=== PATIENT | female | born 1985 | race African-American/Black ===

== ENCOUNTER 2018-11-12 16:04 | Inpatient (IN) | payer MEDICAID ==
[~2018-11-12] VITALS: Ht 175.3 cm; Wt 69.9 kg
[2018-11-12] MEDS ORDERED: SODIUM CHLORIDE 0.9% 1,000 ML IV ONE ×2 (17:03→21:00)
[2018-11-12 17:09] LABS: BASOPHILS % 0.7 % (0.0-2.0); EOSINOPHILS % 3.4 % (0.0-5.0); HEMATOCRIT. 38.8 % (36.0-48.0); HEMOGLOBIN. 13.1 g/dL (12.0-16.0); LYMPHOCYTES % 42.2 % (20.0-50.0); MEAN CORPUSCULAR VOLUME 94.7 fL (81.0-99.0); MONOCYTES % 14.6 % (2.0-8.0); NEUTROPHILS % 39.1 % (40.0-76.0); PLATELET 170 x1000/uL (130-400); RED CELL DISTRIBUTION WIDTH 12.8 % (11.6-14.6)
[2018-11-12 17:12] LABS: CHLORIDE 106 mEq/L (98-107); INR 1.1; PROTHROMBIN TIME 10.8 sec (9.1-11.1)
[2018-11-12] MEDS ORDERED: LORAZEPAM 2MG/ML CPJ IV ONE (17:15)
[2018-11-12 17:16] LABS: HCG SCREEN NEGATIVE
[2018-11-12] MEDS ORDERED: POTASSIUM CHLORIDE 20MEQ TABLET SR PO ONE (18:30)
[2018-11-12 20:11] LABS: CLARITY URINE CLOUDY (CLEAR); COLOR URINE YELLOW (YELLOW); KETONES URINE TRACE (NEGATIVE); LEUKOCYTE ESTERASE URINE TRACE (NEGATIVE); NITRITE URINE NEGATIVE (NEGATIVE); OCCULT BLOOD URINE NEGATIVE (NEGATIVE); PH URINE 5.5 (4.5-8.0); PROTEIN URINE NEGATIVE (NEGATIVE); SPECIFIC GRAVITY URINE 1.024 (1.005-1.030)
[2018-11-12 20:19] LABS: *AMPHETAMINES SCREEN URINE NEGATIVE (NEGATIVE); *BARBITURATES SCREEN URINE NEGATIVE (NEGATIVE); *BENZODIAZEPINES SCREEN URINE NEGATIVE (NEGATIVE); *COCAINE SCREEN URINE NEGATIVE (NEGATIVE)
[2018-11-12 20:20] LABS: CANNABINOID URINE SCREEN NEGATIVE (NEGATIVE); METHADONE URINE SCREEN NEGATIVE (NEGATIVE); OPIATES URINE SCREEN NEGATIVE (NEGATIVE); PHENCYCLIDINE URINE SCREEN NEGATIVE (NEGATIVE)
[2018-11-12] MEDS ORDERED: ZOLPIDEM TARTRATE 5MG TABLET PO PRN (21:30)
[2018-11-12] MEDS ORDERED: ONDANSETRON HCL 4MG/2ML INJ IV PRN (21:30)
[2018-11-13 00:30] VITALS: BP 114/65
[2018-11-13 04:00] VITALS: BP 136/64
[2018-11-13] MEDS: ACETAMINOPHEN 325MG TABLET PO PRN ×2 (06:36→08:37)
[2018-11-13 07:25] LABS: BASOPHILS % 0.4 % (0.0-2.0); HEMATOCRIT. 35.5 % (36.0-48.0); HEMOGLOBIN. 12.1 g/dL (12.0-16.0); LYMPHOCYTES % 30.4 % (20.0-50.0); MEAN CORPUSCULAR HEMOGLOBIN 32.1 pg (28.0-32.0); MEAN CORPUSCULAR VOLUME 94.6 fL (81.0-99.0); MEAN PLATELET VOLUME 9.8 fl (7.4-10.4); MONOCYTES % 13.1 % (2.0-8.0); NEUTROPHILS % 54.1 % (40.0-76.0); PLATELET 163 x1000/uL (130-400); RED BLOOD CELL COUNT 3.76 mill/uL (4.2-5.4); RED CELL DISTRIBUTION WIDTH 12.5 % (11.6-14.6)
[2018-11-13 07:40] LABS: CHLORIDE 111 mEq/L (98-107)
[2018-11-13 08:00] VITALS: BP 101/54
[2018-11-13] MEDS: METOPROLOL TARTRATE 25MG TABLET PO SCH ×2 (09:00→20:52)
[2018-11-13] MEDS: ASPIRIN 81MG TABLET PO SCH (09:45)
[2018-11-13 12:00] VITALS: BP 119/80
[2018-11-13] MEDS: LORAZEPAM 2MG/ML CPJ IV PRN (12:12)
[2018-11-13 16:00] VITALS: BP 110/65
[2018-11-13 20:00] VITALS: BP_SYST 111; BP_SYST 114; BP_SYST 129; BP_DIAS 71; BP_DIAS 77
[2018-11-14] VITALS (7 sets, daily range): BP systolic 94–113; BP diastolic 52–76
[2018-11-14 07:16] LABS: CHLORIDE 111 mEq/L (98-107)
[2018-11-14 07:17] LABS: BASOPHILS % 0.3 % (0.0-2.0); EOSINOPHILS % 3.2 % (0.0-5.0); HEMATOCRIT. 37.5 % (36.0-48.0); HEMOGLOBIN. 12.7 g/dL (12.0-16.0); LYMPHOCYTES % 32.3 % (20.0-50.0); MEAN CORPUSCULAR HEMOGLOBIN 32.2 pg (28.0-32.0); MEAN CORPUSCULAR VOLUME 94.8 fL (81.0-99.0); MEAN PLATELET VOLUME 9.8 fl (7.4-10.4); MONOCYTES % 7.3 % (2.0-8.0); NEUTROPHILS % 56.9 % (40.0-76.0); PLATELET 180 x1000/uL (130-400); RED BLOOD CELL COUNT 3.95 mill/uL (4.2-5.4); RED CELL DISTRIBUTION WIDTH 12.7 % (11.6-14.6)
[2018-11-14 07:29] LABS: CREATINE KINASE 38 IU/L (26-192); LDL CHOLESTEROL 68 mg/dL (5-100)
[2018-11-14 07:31] LABS: HDL CHOLESTEROL 48 mg/dL (40-59)
[2018-11-14 07:37] LABS: CREATINE KINASE MB FRACTION < 1.0 ng/mL (0.5-3.6)
[2018-11-14] MEDS: LORAZEPAM 2MG/ML CPJ IV PRN (07:56)
[2018-11-14] MEDS: METOPROLOL TARTRATE 25MG TABLET PO SCH ×2 (09:00→21:00)
[2018-11-14] MEDS ORDERED: POTASSIUM CHLORIDE 20MEQ/PACKET PO NR (10:58)
[2018-11-14] MEDS: ASPIRIN 81MG TABLET PO SCH (11:04)
[2018-11-14] MEDS ORDERED: IOHEXOL-350 100 ML BOTTLE ONE (15:26)
[2018-11-14] MEDS: ACETAMINOPHEN 325MG TABLET PO PRN (21:19)
[2018-11-15] VITALS: BP 97/55
[2018-11-15 04:00] VITALS: BP_SYST 109; BP_SYST 115; BP_SYST 116; BP_DIAS 67; BP_DIAS 72; BP_DIAS 79
[2018-11-15] MEDS: ACETAMINOPHEN 325MG TABLET PO PRN ×2 (05:01→20:22)
[2018-11-15 08:00] VITALS: BP_SYST 100; BP_SYST 111; BP_SYST 115; BP_DIAS 58; BP_DIAS 61; BP_DIAS 76
[2018-11-15] MEDS: METOPROLOL TARTRATE 25MG TABLET PO SCH ×2 (09:00→20:39)
[2018-11-15] MEDS: ASPIRIN 81MG TABLET PO SCH (09:07)
[2018-11-15] MEDS: MECLIZINE 25MG TABLET PO PRN ×2 (11:15→20:22)
[2018-11-15] MEDS ORDERED: DIPHENHYDRAMINE 50MG/ML VIAL IV PRN (11:30)
[2018-11-15 12:00] VITALS: BP 106/59
[2018-11-15] MEDS: METHYLPREDNISOLONE SOD SUCC 40 MG/ML VIAL IV SCH ×2 (13:42→22:00)
[2018-11-15 16:00] VITALS: BP 109/72
[2018-11-15 20:00] VITALS: BP_SYST 103; BP_SYST 106; BP_DIAS 66; BP_DIAS 72
[2018-11-15] MEDS: FAMOTIDINE 20MG/2ML VIAL IV SCH (20:21)
[2018-11-15] MEDS: FLUTICASONE PROPIONATE 50MCG/SPRAY BOTTLE BOTHNSTRLS SCH (21:00)
[2018-11-16 00:41] VITALS: BP 92/45
[2018-11-16 04:00] VITALS: BP 104/55
[2018-11-16] MEDS: METHYLPREDNISOLONE SOD SUCC 40 MG/ML VIAL IV SCH ×2 (05:41→10:57)
[2018-11-16 07:06] LABS: BASOPHILS % 0.2 % (0.0-2.0); EOSINOPHILS % 0.5 % (0.0-5.0); HEMATOCRIT. 39.4 % (36.0-48.0); HEMOGLOBIN. 13.1 g/dL (12.0-16.0); LYMPHOCYTES % 22.6 % (20.0-50.0); MEAN CORPUSCULAR HEMOGLOBIN 31.2 pg (28.0-32.0); MEAN CORPUSCULAR VOLUME 93.9 fL (81.0-99.0); MEAN PLATELET VOLUME 9.6 fl (7.4-10.4); NEUTROPHILS % 70.7 % (40.0-76.0); PLATELET 202 x1000/uL (130-400); RED CELL DISTRIBUTION WIDTH 12.3 % (11.6-14.6)
[2018-11-16 07:45] LABS: CHLORIDE 107 mEq/L (98-107)
[2018-11-16 08:00] VITALS: BP 106/62
[2018-11-16] MEDS: FLUTICASONE PROPIONATE 50MCG/SPRAY BOTTLE BOTHNSTRLS SCH (09:00)
[2018-11-16] MEDS: METOPROLOL TARTRATE 25MG TABLET PO SCH (09:00)
[2018-11-16] MEDS: FAMOTIDINE 20MG/2ML VIAL IV SCH (10:57)
[2018-11-16] MEDS: ASPIRIN 81MG TABLET PO SCH (10:57)
[2018-11-16 12:00] VITALS: BP 102/64
[2018-11-16] MEDS ORDERED: MECL-127 MT (12:53)
[2018-11-16 16:00] VITALS: BP 94/62
[2018-11-16 18:18] VITALS: BP 94/62
== END 2018-11-16 18:58 | disposition home or self-care (01) | DRG 48 ==
LOC: ER 16:27 → 7WST 21:01 → ENRESERV 23:05
PROVIDERS: ADMIT Internal Medicine; ATTEND Internal Medicine
DX: G90.8 Other disorders of autonomic nervous system (principal); I42.9 Cardiomyopathy, unspecified; I50.22 Chronic systolic (congestive) heart failure; F41.9 Anxiety disorder, unspecified; E87.6 Hypokalemia; M79.18 Myalgia, other site; I95.1 Orthostatic hypotension; R82.71 Bacteriuria
CPT/HCPCS: 36415; 71045; 71275; 78452; 80048; 80061; 80305; 82533; 82550; 82553; 83735; 83880; 84443; 84484; 84703; 85379; 86038; 93005; 93017; 93306; 93880; 93970; 96361; 96374; 99285; A9500; J1200; J2060; J2920; J3490; J7030; J8597; Q9967

== ENCOUNTER 2018-11-18 09:39 | Inpatient (IN) | payer MEDICAID ==
[~2018-11-18] VITALS: Ht 152.4 cm; Wt 76.7 kg
[~2018-11-18 09:39] MED LIST: MECL-127 MT
[2018-11-18] MEDS ORDERED: SODIUM CHLORIDE 0.9% 1,000 ML IV ONE (10:28)
[2018-11-18 10:54] LABS: BASOPHILS % 0.9 % (0.0-2.0); EOSINOPHILS % 0.9 % (0.0-5.0); HEMATOCRIT. 39.2 % (36.0-48.0); HEMOGLOBIN. 13.3 g/dL (12.0-16.0); LYMPHOCYTES % 20.9 % (20.0-50.0); MEAN CORPUSCULAR HEMOGLOBIN 32.1 pg (28.0-32.0); MEAN CORPUSCULAR VOLUME 94.6 fL (81.0-99.0); MEAN PLATELET VOLUME 9.7 fl (7.4-10.4); MONOCYTES % 5.1 % (2.0-8.0); NEUTROPHILS % 72.2 % (40.0-76.0); PLATELET 212 x1000/uL (130-400); RED BLOOD CELL COUNT 4.15 mill/uL (4.2-5.4); RED CELL DISTRIBUTION WIDTH 12.5 % (11.6-14.6)
[2018-11-18 10:54] LABS: CLARITY URINE CLEAR (CLEAR); COLOR URINE YELLOW (YELLOW); KETONES URINE NEGATIVE (NEGATIVE); LEUKOCYTE ESTERASE URINE NEGATIVE (NEGATIVE); NITRITE URINE NEGATIVE (NEGATIVE); OCCULT BLOOD URINE NEGATIVE (NEGATIVE); PH URINE 7.5 (4.5-8.0); PROTEIN URINE NEGATIVE (NEGATIVE); SPECIFIC GRAVITY URINE 1.004 (1.005-1.030); UROBILINOGEN URINE 0.2 E.U./dL (0.2-1.0)
[2018-11-18 10:58] LABS: CHLORIDE 109 mEq/L (98-107)
[2018-11-18 11:11] LABS: HCG SCREEN NEGATIVE
[2018-11-18] MEDS ORDERED: ASPIRIN 325MG EC TABLET PO ONE (14:45)
[2018-11-18] MEDS ORDERED: MORPHINE SULFATE 2 MG/ML CPJ (NOT FOR IM USE) IV ONE (16:00)
[2018-11-18] MEDS ORDERED: MORPHINE SULFATE 4 MG/ML CPJ (NOT FOR IM USE) IV ONE (16:00)
[2018-11-18] MEDS ORDERED: ACETAMINOPHEN 325MG TABLET PO ONE (16:15)
[2018-11-18 17:35] VITALS: BP 113/64
[2018-11-18] MEDS ORDERED: ACETAMINOPHEN 325MG TABLET PO PRN (19:15)
[2018-11-18 20:00] VITALS: BP_SYST 100; BP_SYST 115; BP_SYST 122; BP_DIAS 60; BP_DIAS 76; BP_DIAS 78
[2018-11-18 22:04] LABS: BASOPHILS % 0.5 % (0.0-2.0); EOSINOPHILS % 0.8 % (0.0-5.0); HEMATOCRIT. 40.4 % (36.0-48.0); HEMOGLOBIN. 13.5 g/dL (12.0-16.0); LYMPHOCYTES % 33.6 % (20.0-50.0); MEAN CORPUSCULAR HEMOGLOBIN 31.6 pg (28.0-32.0); MEAN CORPUSCULAR VOLUME 94.5 fL (81.0-99.0); MEAN PLATELET VOLUME 9.9 fl (7.4-10.4); MONOCYTES % 6.5 % (2.0-8.0); NEUTROPHILS % 58.6 % (40.0-76.0); PLATELET 223 x1000/uL (130-400); RED BLOOD CELL COUNT 4.28 mill/uL (4.2-5.4); RED CELL DISTRIBUTION WIDTH 12.1 % (11.6-14.6)
[2018-11-18 22:12] LABS: CHLORIDE 107 mEq/L (98-107)
[2018-11-19] VITALS (7 sets, daily range): BP systolic 96–131; BP diastolic 47–77
[2018-11-19] MEDS: DEXT 5%/0.45% NACL 1000ML 1,000 ML IV SCH ×3 (00:09→17:00)
[2018-11-19] MEDS: HYDROCODONE/ACETAMINOPHEN 5/325MG TABLET PO PRN ×2 (06:55→22:52)
[2018-11-19] MEDS ORDERED: IBUPROFEN 800MG TABLET PO PRN (08:30)
[2018-11-19] MEDS: ENOXAPARIN 40MG/0.4ML SYR SUBCUT SCH (08:49)
[2018-11-20] VITALS: BP 127/77
[2018-11-20 04:00] VITALS: BP_SYST 110; BP_SYST 112; BP_SYST 115; BP_DIAS 74; BP_DIAS 77; BP_DIAS 78
[2018-11-20] MEDS: DEXT 5%/0.45% NACL 1000ML 1,000 ML IV SCH ×2 (05:15→18:00)
[2018-11-20 07:24] LABS: BASOPHILS % 0.6 % (0.0-2.0); EOSINOPHILS % 2.6 % (0.0-5.0); HEMATOCRIT. 36.8 % (36.0-48.0); HEMOGLOBIN. 12.7 g/dL (12.0-16.0); LYMPHOCYTES % 32.9 % (20.0-50.0); MEAN CORPUSCULAR HEMOGLOBIN 32.3 pg (28.0-32.0); MEAN CORPUSCULAR VOLUME 93.6 fL (81.0-99.0); MEAN PLATELET VOLUME 9.9 fl (7.4-10.4); NEUTROPHILS % 57.9 % (40.0-76.0); PLATELET 204 x1000/uL (130-400); RED BLOOD CELL COUNT 3.93 mill/uL (4.2-5.4)
[2018-11-20 07:36] LABS: CHLORIDE 108 mEq/L (98-107)
[2018-11-20 08:00] VITALS: BP_SYST 102; BP_SYST 114; BP_SYST 115; BP_DIAS 47; BP_DIAS 69; BP_DIAS 73
[2018-11-20] MEDS: ENOXAPARIN 40MG/0.4ML SYR SUBCUT SCH (09:05)
[2018-11-20 11:44] LABS: *AMPHETAMINES SCREEN URINE NEGATIVE (NEGATIVE); CANNABINOID URINE SCREEN NEGATIVE (NEGATIVE); METHADONE URINE SCREEN NEGATIVE (NEGATIVE)
[2018-11-20 11:45] LABS: *BARBITURATES SCREEN URINE NEGATIVE (NEGATIVE); *COCAINE SCREEN URINE NEGATIVE (NEGATIVE); PHENCYCLIDINE URINE SCREEN NEGATIVE (NEGATIVE)
[2018-11-20 11:52] LABS: *BENZODIAZEPINES SCREEN URINE NEGATIVE (NEGATIVE); OPIATES URINE SCREEN PRESUMTIVE POSITIVE (NEGATIVE)
[2018-11-20 12:00] VITALS: BP 99/65
[2018-11-20 16:00] VITALS: BP 105/70
[2018-11-20] MEDS: HYDROCODONE/ACETAMINOPHEN 5/325MG TABLET PO PRN (19:20)
[2018-11-20 20:00] VITALS: BP_SYST 103; BP_SYST 104; BP_SYST 117; BP_DIAS 60; BP_DIAS 65; BP_DIAS 71
[2018-11-21] VITALS: BP 105/63
[2018-11-21 04:00] VITALS: BP 108/69
[2018-11-21] MEDS: DEXT 5%/0.45% NACL 1000ML 1,000 ML IV SCH ×2 (05:55→16:34)
[2018-11-21 06:35] LABS: HEMATOCRIT. 41.2 % (36.0-48.0); HEMOGLOBIN. 14.2 g/dL (12.0-16.0); MEAN CORPUSCULAR HEMOGLOBIN 32.1 pg (28.0-32.0); MEAN CORPUSCULAR VOLUME 93.3 fL (81.0-99.0); MEAN PLATELET VOLUME 9.5 fl (7.4-10.4); PLATELET 211 x1000/uL (130-400); RED BLOOD CELL COUNT 4.42 mill/uL (4.2-5.4); RED CELL DISTRIBUTION WIDTH 12.1 % (11.6-14.6)
[2018-11-21 06:42] LABS: CHLORIDE 106 mEq/L (98-107)
[2018-11-21 08:00] VITALS: BP 104/63
[2018-11-21] MEDS: ENOXAPARIN 40MG/0.4ML SYR SUBCUT SCH (08:57)
[2018-11-21] MEDS: HYDROCODONE/ACETAMINOPHEN 5/325MG TABLET PO PRN ×2 (10:44→23:00)
[2018-11-21 12:00] VITALS: BP_SYST 105; BP_SYST 107; BP_SYST 95; BP_DIAS 52; BP_DIAS 63; BP_DIAS 75
[2018-11-21 12:23] LABS: PLATELET ESTIMATE NORMAL
[2018-11-21 16:00] VITALS: BP 136/76
[2018-11-21 20:00] VITALS: BP 110/60
[2018-11-22] VITALS: BP 123/56
[2018-11-22 04:00] VITALS: BP_SYST 109; BP_SYST 112; BP_SYST 117; BP_DIAS 56; BP_DIAS 58; BP_DIAS 63
[2018-11-22] MEDS: DEXT 5%/0.45% NACL 1000ML 1,000 ML IV SCH (07:01)
[2018-11-22] MEDS: ENOXAPARIN 40MG/0.4ML SYR SUBCUT SCH (09:32)
[2018-11-22] MEDS: DEXAMETHASONE 4MG/ML 1ML VIAL IV SCH ×3 (12:00→23:43)
[2018-11-22 20:00] VITALS: BP_SYST 103; BP_SYST 105; BP_SYST 107; BP_DIAS 62; BP_DIAS 65
[2018-11-23] VITALS: BP 104/59
[2018-11-23 04:00] VITALS: BP 106/62
[2018-11-23] MEDS: DEXAMETHASONE 4MG/ML 1ML VIAL IV SCH ×2 (06:21→12:20)
[2018-11-23 08:00] VITALS: BP 117/87
[2018-11-23 12:00] VITALS: BP 110/79
[2018-11-23 14:17] VITALS: BP 110/79
[2018-12-05 13:07] LABS: AChR BLOCKING ABS SERUM 10 % (0-25)
== END 2018-11-23 17:04 | disposition home or self-care (01) | DRG 204 ==
LOC: ER 09:39 → 5WST 15:00 → ENRESERV 15:35 → ER 17:25
PROVIDERS: ADMIT Internal Medicine; ATTEND Internal Medicine
PROC: 4A00X4Z Measurement of Central Nervous Electrical Activity, External Approach (ICD-10-PCS; principal; 2018-11-22)
DX: R55 Syncope and collapse (principal); I95.9 Hypotension, unspecified; M48.02 Spinal stenosis, cervical region; M50.20 Other cervical disc displacement, unspecified cervical region; G95.20 Unspecified cord compression; E86.0 Dehydration; F41.9 Anxiety disorder, unspecified; R20.2 Paresthesia of skin; R00.1 Bradycardia, unspecified; I10 Essential (primary) hypertension; Z79.899 Other long term (current) drug therapy; Z98.891 History of uterine scar from previous surgery
CPT/HCPCS: 36415; 70544; 70553; 72141; 72148; 76536; 80048; 80305; 80320; 83519; 83735; 84443; 84484; 84703; 93005; 97162; 97166; 99285; J1100; J1650; J2270; J7030; G0480

== ENCOUNTER 2019-01-13 11:51 | Emergency (ER) | payer MEDICAID ==
[~2019-01-13] VITALS: Ht 175.3 cm; Wt 68.0 kg
[2019-01-13 12:59] LABS: BASOPHILS % 1.1 % (0.0-2.0); EOSINOPHILS % 2.7 % (0.0-5.0); HEMATOCRIT. 37.9 % (36.0-48.0); HEMOGLOBIN. 12.8 g/dL (12.0-16.0); LYMPHOCYTES % 40.4 % (20.0-50.0); MEAN CORPUSCULAR HEMOGLOBIN 31.7 pg (28.0-32.0); MEAN CORPUSCULAR VOLUME 94.3 fL (81.0-99.0); MEAN PLATELET VOLUME 10.3 fl (7.4-10.4); MONOCYTES % 7.1 % (2.0-8.0); NEUTROPHILS % 48.7 % (40.0-76.0); PLATELET 186 x1000/uL (130-400); RED BLOOD CELL COUNT 4.02 mill/uL (4.2-5.4); RED CELL DISTRIBUTION WIDTH 13.3 % (11.6-14.6)
[2019-01-13 14:40] VITALS: BP 101/62
[2019-01-13 14:41] LABS: CLARITY URINE CLEAR (CLEAR); COLOR URINE YELLOW (YELLOW); KETONES URINE NEGATIVE (NEGATIVE); LEUKOCYTE ESTERASE URINE NEGATIVE (NEGATIVE); NITRITE URINE NEGATIVE (NEGATIVE); OCCULT BLOOD URINE 1+ (NEGATIVE); PROTEIN URINE NEGATIVE (NEGATIVE); SPECIFIC GRAVITY URINE 1.003 (1.005-1.030); UROBILINOGEN URINE 0.2 E.U./dL (0.2-1.0)
== END 2019-01-13 15:02 | disposition home or self-care (01) ==
LOC: ER 11:51
DX: N92.0 Excessive and frequent menstruation with regular cycle (principal); Z98.890 Other specified postprocedural states
CPT/HCPCS: 36415; 76830; 76856; 81025; 93005; 99284

== ENCOUNTER 2019-01-19 02:08 | Emergency (ER) | payer MEDICAID ==
[~2019-01-19] VITALS: Ht 175.3 cm; Wt 69.0 kg
[2019-01-19 06:00] VITALS: BP 93/48
== END 2019-01-19 06:17 | disposition home or self-care (01) ==
LOC: ER 02:08
DX: R07.89 Other chest pain (principal); R20.2 Paresthesia of skin; R20.0 Anesthesia of skin; G90.1 Familial dysautonomia [Riley-Day]; Z98.890 Other specified postprocedural states; Z79.899 Other long term (current) drug therapy
CPT/HCPCS: 93005; 93970; 99284

== ENCOUNTER 2019-03-07 19:07 | Inpatient (IN) | payer MEDICAID ==
[~2019-03-07] VITALS: Ht 180.3 cm; Wt 68.5 kg
[2019-03-07 21:39] LABS: CLARITY URINE CLEAR (CLEAR); COLOR URINE YELLOW (YELLOW); KETONES URINE NEGATIVE (NEGATIVE); LEUKOCYTE ESTERASE URINE NEGATIVE (NEGATIVE); NITRITE URINE NEGATIVE (NEGATIVE); OCCULT BLOOD URINE NEGATIVE (NEGATIVE); PROTEIN URINE NEGATIVE (NEGATIVE); SPECIFIC GRAVITY URINE 1.005 (1.005-1.030); UROBILINOGEN URINE 0.2 E.U./dL (0.2-1.0)
[2019-03-07 22:46] LABS: BASOPHILS % 0.6 % (0.0-2.0); EOSINOPHILS % 1.3 % (0.0-5.0); HEMATOCRIT. 34.7 % (36.0-48.0); HEMOGLOBIN. 11.6 g/dL (12.0-16.0); LYMPHOCYTES % 47.1 % (20.0-50.0); MEAN CORPUSCULAR HEMOGLOBIN 31.5 pg (28.0-32.0); MEAN CORPUSCULAR VOLUME 93.8 fL (81.0-99.0); MEAN PLATELET VOLUME 10.8 fl (7.4-10.4); MONOCYTES % 6.3 % (2.0-8.0); NEUTROPHILS % 44.7 % (40.0-76.0); PLATELET 161 x1000/uL (130-400); RED CELL DISTRIBUTION WIDTH 12.9 % (11.6-14.6)
[2019-03-07 22:48] LABS: CHLORIDE 106 mEq/L (98-107)
[2019-03-07 23:28] LABS: INR 1.1; PROTHROMBIN TIME 10.9 sec (9.6-11.0)
[2019-03-08] MEDS ORDERED: FAMOTIDINE 20MG TABLET PO ONE (00:45)
[2019-03-08] MEDS ORDERED: HYDROCODONE/ACETAMINOPHEN 5/325MG TABLET PO ONE (00:45)
[2019-03-08] MEDS ORDERED: IOHEXOL-350 100 ML BOTTLE ONE (06:18)
[2019-03-08 08:50] VITALS: BP 114/56
[2019-03-08 12:00] VITALS: BP 111/67
[2019-03-08 13:22] LABS: *AMPHETAMINES SCREEN URINE NEGATIVE (NEGATIVE); *BARBITURATES SCREEN URINE NEGATIVE (NEGATIVE); *BENZODIAZEPINES SCREEN URINE NEGATIVE (NEGATIVE); *COCAINE SCREEN URINE NEGATIVE (NEGATIVE)
[2019-03-08 13:23] LABS: CANNABINOID URINE SCREEN NEGATIVE (NEGATIVE); METHADONE URINE SCREEN NEGATIVE (NEGATIVE); OPIATES URINE SCREEN NEGATIVE (NEGATIVE); PHENCYCLIDINE URINE SCREEN NEGATIVE (NEGATIVE)
[2019-03-08 15:17] VITALS: BP 94/48
[2019-03-08] MEDS ORDERED: HYDROCODONE/ACETAMINOPHEN 5/325MG TABLET PO PRN (15:45)
[2019-03-08 20:00] VITALS: BP 98/44
[2019-03-09] VITALS: BP 94/45
[2019-03-09 00:31] VITALS: BP 94/45
[2019-03-09 04:00] VITALS: BP 96/48
[2019-03-09] MEDS ORDERED: IBUPROFEN 800MG TABLET PO PRN (06:00)
[2019-03-09 08:00] VITALS: BP 100/72
[2019-03-09 15:53] VITALS: BP 100/72
== END 2019-03-09 18:38 | disposition home or self-care (01) | DRG 203 ==
LOC: ER 19:07 → 7WST 03-08 00:32 → EDBEDREQTM 03-08 00:42 → EDBEDREQ 03-08 00:42 → EDBEDREQDT 03-08 00:42 → ENRESERV 03-08 07:39 → 6WST 03-08 19:39
PROVIDERS: ADMIT Internal Medicine; ATTEND Internal Medicine
DX: R07.89 Other chest pain (principal); M48.02 Spinal stenosis, cervical region; D24.1 Benign neoplasm of right breast; D64.9 Anemia, unspecified; Z98.891 History of uterine scar from previous surgery
CPT/HCPCS: 36415; 71045; 76536; 76642; 80305; 81025; 83880; 84484; 85379; 93005; 93306; 93970; 99285; Q9967

== ENCOUNTER 2020-07-05 12:40 | Emergency (ER) | payer MEDICAID ==
[~2020-07-05] VITALS: Ht 175.3 cm; Wt 60.0 kg
[2020-07-05] MEDS ORDERED: ASPIRIN 81MG TABLET PO ONE (13:30)
[2020-07-05 13:31] LABS: EOSINOPHILS % 1.2 % (0.0-5.0); HEMATOCRIT. 29.9 % (36.0-48.0); HEMOGLOBIN. 9.5 g/dL (12.0-16.0); LYMPHOCYTES % 44.2 % (20.0-50.0); MEAN CORPUSCULAR HEMOGLOBIN 24.6 pg (28.0-32.0); MEAN CORPUSCULAR VOLUME 77.4 fL (81.0-99.0); MEAN PLATELET VOLUME 9.5 fl (7.4-10.4); MONOCYTES % 9.5 % (2.0-8.0); NEUTROPHILS % 44.1 % (40.0-76.0); PLATELET 179 x1000/uL (130-400); RED BLOOD CELL COUNT 3.87 mill/uL (4.2-5.4); RED CELL DISTRIBUTION WIDTH 17.3 % (11.6-14.6)
[2020-07-05 13:41] LABS: CHLORIDE 108 mEq/L (98-107)
[2020-07-05 16:02] VITALS: BP 109/61
[2020-07-05 16:13] LABS: *BENZODIAZEPINES SCREEN URINE NEGATIVE (NEGATIVE); *COCAINE SCREEN URINE NEGATIVE (NEGATIVE); CANNABINOID URINE SCREEN NEGATIVE (NEGATIVE); METHADONE URINE SCREEN NEGATIVE (NEGATIVE); OPIATES URINE SCREEN NEGATIVE (NEGATIVE)
[2020-07-05 16:14] LABS: PHENCYCLIDINE URINE SCREEN NEGATIVE (NEGATIVE)
[2020-07-05 16:16] LABS: *BARBITURATES SCREEN URINE NEGATIVE (NEGATIVE)
[2020-07-05 16:17] LABS: *AMPHETAMINES SCREEN URINE NEGATIVE (NEGATIVE)
== END 2020-07-05 16:18 | disposition home or self-care (01) ==
LOC: ER 12:40
DX: R07.89 Other chest pain (principal); S59.901A Unspecified injury of right elbow, initial encounter; I51.9 Heart disease, unspecified; Z98.890 Other specified postprocedural states; X50.0XXA Overexertion from strenuous movement or load, initial encounter; Y93.89 Activity, other specified; Y92.018 Other place in single-family (private) house as the place of occurrence of the external cause
CPT/HCPCS: 36415; 71045; 73080; 80053; 80305; 81025; 83880; 84443; 84484; 85025; 85379; 93005; 99285; Z7610